=== PATIENT | female | born 1950 | race Hispanic/Latino ===

== ENCOUNTER 2017-08-19 15:44 | Inpatient (IN) | payer MEDICARE ==
--- NOTE | 2017-08-19 16:19 | ED PDOC ---
Arrival/HPI - General Chief Complaint: Shortness Of Breath Time Seen by Provider: 08/19/17 16:14 Historian: Patient - History of Present Illness Narrative History of Present Illness (Text): 08/19/17 16:16 pt p/w 3 days onset of worsening exertional sob/chest pressure, at most pressure /pain is rated at 8/10; pt with severe weakness/fatigue, general malaise feeling ; pt states ~ 10 days ago had URI like symptoms with first day of sore throat then subsequent severe nasal congestion and some body aches with improvement over the last weekend but took a turn for the worse 3 days ago; pt states intact appetite, no fever/chills/sweats, no palpitations, non-radiating chest pressure, no abd pain, no n/v, no numbness/tingling, no urinary/bowel changes, no fall/trauma/sick contact, no travel; pt denied LOC; ?dizziness/ lightheadedness; pt denied other complaints pt is here for further eval. PCP: DR DICKENS cards: n/a pt lives alone smokes ~ 1/2 pack a day Time/Duration: < week Symptom Onset: Gradual Symptom Course: Worsening Quality: Pressure, Tightness Severity Level: 8, Severe Activities at Onset: Rest, Other (worse with exertion) Context: Exertion, Home Past Medical History - Provider Review Nursing Documentation Reviewed: Yes - Travel History Have you recently traveled outside [place] w/in the past 3 mons?: No - Past History Past History: No Previous - Infectious Disease Hx of Infectious Diseases: None - Reproductive Menopause: Yes Currently : No - Pulmonary Hx Asthma: Yes - Psychiatric Hx Depression: Yes Hx Substance Use: No - Surgical History Hx Hysterectomy: Yes - Suicidal Assessment Feels Threatened In Home Enviroment: No Family/Social History - Physician Review Nursing Documentation Reviewed: Yes Family/Social History: No Known Family HX Smoking Status: Heavy Smoker > 10 Cigarettes Daily Hx Alcohol Use: No Hx Substance Use: No Hx Substance Use Treatment: No Allergies/Home Meds Allergies/Adverse Reactions: Allergies Sulfa Allergy (Uncoded 08/19/17 15:53) RASH Home Medications: Home Meds Medication Instructions Recorded Confirmed Albuterol/Ipratropium [Combivent] 1 puff IH PRN PRN 03/05/12 08/19/17 Review of Systems - Review of Systems Constitutional: Fatigue. absent: Fevers, Night Sweats Eyes: Normal ENT: Normal Respiratory: SOB, Cough, Sputum. absent: Wheezing Cardiovascular: Chest Pain, Palpitations, TERRY Gastrointestinal: Normal Genitourinary Female: Normal Musculoskeletal: Normal Skin: Normal Neurological: Dizziness Endocrine: Normal Hemo/Lymphatic: Normal Psychiatric: Normal Physical Exam Vital Signs Reviewed: Yes Vital Signs Temp Pulse Resp BP Pulse Ox 08/19/17 16:05 18 96 08/19/17 15:49 98 F 114 H 18 165/89 H 97 Temperature: Afebrile Blood Pressure: Hypertensive Pulse: Tachycardic Respiratory Rate: Normal Appearance: Positive for: Well-Appearing, Uncomfortable, Other (alert/awake, GCS = 15, oriented x 3, NAD, cooperative, uncomfortable, mild distress due to coughing) Pain Distress: Mild Mental Status: Positive for: Alert and Oriented X 3 - Systems Exam Head: Present: Atraumatic, Normocephalic Pupils: Present: PERRL, Other (no nystagmus, no photophobia, sclera anicteric, visual field intact b/l) Extroacular Muscles: Present: EOMI Conjunctiva: Present: Normal Ears: Present: Normal Mouth: Present: Dry, Other (fair dentitions, ) Pharnyx: Present: Normal Nose (External): Present: Atraumatic Nose (Internal): Present: Normal Inspection Neck: Present: Normal Range of Motion, Trachea Midline, Other (no drooling/ stridor, no nuchal rigidity, no meningeal signs, intact ROM). No: MIDLINE TENDERNESS Respiratory/Chest: Present: Other (coarse breath sounds bibasiliar, poor insp effort/poor aeration; no wheezing/rales/rhonchi, mild tachypenia, no accessory muscle use noted, no belly retractions). No: Respiratory Distress, Accessory Muscle Use Cardiovascular: Present: Normal S1, S2, Other (+ tachycardia, +S1, +S2). No: Murmurs Abdomen: Present: Normal Bowel Sounds, Other (well nourished female, no focal tenderness, no estrada's sign, no mcburney's point tenderness, no masses/rebound/ guarding/rigidity) Back: Present: Normal Inspection. No: CVA Tenderness, Midline Tenderness Upper Extremity: Present: Normal Inspection, Normal ROM, NORMAL PULSES, Neurovascularly Intact Lower Extremity: Present: Normal Inspection, Edema (+ 1/5 pitting edema b/l lower ext mid-tib/fib; no mallory's sign b/l, strength 5/5 grossly intact in all limbs), NORMAL PULSES, Neurovascularly Intact, Capillary Refill < 2 s Neurological: Present: GCS=15, CN II-XII Intact, Speech Normal, Other (no facial asymmetries, no slurr speech, oriented x 3, NIH stroke scale ~ 0) Skin: Present: Warm, Normal Color, Other (cap refill < 1sec, no ulcerations, no petechiae) Psychiatric: Present: Alert, Oriented x 3 Medical Decision Making ED Course and Treatment: 08/19/17 16:17 Impression: chest pain/exertional chest pain/sob, recent URI i have consider all the differential diagnosis regarding pt's chief medical complaints/clinical findings, including but are not limited to: r/o ACS, r/o COPD, r/o infection A/P: chest pain, sob - labs - iv - xray - ? PE - acs eval - observe - supportive care 08/19/17 17:55 repeate lung exam after 3 duonebs: CTA b/l, no w/r/r, remained slight poor aeration, no tachypenia, no accessory muscle use noted pt currently with min chest pain pt is made aware of her medical results agrees with admission Dr Baker contacted, made aware, agrees with ED mgt/txt, agrees with admission Re-evaluation Time: 17:51 Reassessment Condition: Improving,but remains with symptoms - Critical Care Critical Care Minutes: 45 minutes Critical Care Time: Excluding Proc Time Narrative Critical Care (Text): 08/19/17 17:57 critical care time: 45min, excluding procedure time, excluding time teaching residents/students/mid-level providers; including initial eval/diagnosis, diagnostic interpretation, re-eval, consultations, final disposition - Lab Interpretations Lab Results: 08/19/17 16:05 08/19/17 16:05 Lab Results 08/19/17 16:05: Influenza Typ A,B (EIA) Negative for flu a/b 08/19/17 16:05: Sodium 142, Potassium 4.6, Chloride 103, Carbon Dioxide 29, Anion Gap 15, BUN 21, Creatinine 0.7, Est GFR ( Amer) > 60, Est GFR (Non- Af Amer) > 60, Random Glucose 91, Calcium 10.5, Magnesium 2.0, Total Bilirubin 0.5, AST 33, ALT 35, Alkaline Phosphatase 88, Lactate Dehydrogenase 747 H, Total Creatine Kinase 160, Troponin I < 0.01, NT-Pro-B Natriuret Pep 65.1, Total Protein 7.8, Albumin 4.2, Globulin 3.5, Albumin/Globulin Ratio 1.2 08/19/17 16:05: PT 11.4, INR 1.00, APTT 25.0 L 08/19/17 16:05: WBC 10.2, RBC 5.02, Hgb 15.0, Hct 44.9, MCV 89.4, MCH 29.9, MCHC 33.4, RDW 13.2, Plt Count 220, MPV 10.4, Gran % 67.3, Lymph % (Auto) 23.9, [place] % (Auto) 7.1 H, Eos % (Auto) 1.3 L, Baso % (Auto) 0.4, Gran # 6.84 H, Lymph # (Auto) 2.4, [place] # (Auto) 0.7 H, Eos # (Auto) 0.1, Baso # (Auto) 0.04 I have reviewed the lab results: Yes Interpretation: All labs normal - RAD Interpretation Narrative RAD Interpretations (Text): 08/19/17 17:58 hyperinflated lung westfall, NO consolidations noted Radiology Orders: 08/19/17 16:14 CHEST TWO VIEWS (PA/LAT) [RAD] [employer] Council[employer]: ED Physician - EKG Interpretation EKG Interpretation (Text): 08/19/17 16:44 Sinus tach at 115 bpm, normal axis, no ectopy, peaked Ts noted II/III/F, V3-6, non-specific st changes, ABNL EKG; no old EKG to compare with Interpreted by ED Physician: Yes Type: 12 lead EKG Comparison: No previous EKG avail. - Medication Orders Current Medication Orders: Ceftriaxone Sodium (Rocephin 1 Gram Ivpb) 1 gm in 100 mls @ 200 mls/hr IVPB STAT STA PRN Reason: Protocol Stop: 08/19/17 18:16 Azithromycin (Zithromax 500mg In Ns) 500 mg in 250 mls @ 167 mls/hr IVPB STAT STA PRN Reason: Protocol Stop: 08/19/17 19:17 Discontinued Medications Albuterol/Ipratropium (Duoneb 3 Mg/0.5 Mg (3 Ml) Ud) 3 ml IH Q15M RAN Stop: 08/19/17 16:46 Last Admin: 08/19/17 16:58 Dose: 3 ml Aspirin (Aspirin) 325 mg PO STAT STA Stop: 08/19/17 16:15 Last Admin: 08/19/17 16:27 Dose: 325 mg Methylprednisolone (Solu-Medrol) 125 mg IVP STAT STA Stop: 08/19/17 16:16 Last Admin: 08/19/17 16:27 Dose: 125 mg IVP Administration Document 08/19/17 16:27 LM (Rec: 08/19/17 16:27 [facility] [id number]) Charges for Administration # of IVP Administrations 1 Disposition/Present on Arrival - Present on Arrival Any Indicators Present on Arrival: No History of DVT/PE: No History of Uncontrolled Diabetes: No Urinary Catheter: No History of Decub. Ulcer: No History Surgical Site Infection Following: None - Disposition Have Diagnosis and Disposition been Completed?: Yes Diagnosis: Acute bronchitis with COPD, Dehydration, Chest pain with moderate risk for cardiac etiology Disposition: HOSPITALIZED Disposition Time: 18:01 Patient Plan: Admission, Telemetry Condition: STABLE Discharge Instructions (ExitCare): Chest Pain (ED) Referrals: Shaheen Dickens MD [Primary Care Provider] - Follow up with primary Forms: [employer] (Arabic)
[2017-08-19] MEDS: Albuterol-Ipratrop 3 mg / 0.5 (3 ml) UD IH SCH ×3 (16:27→16:58)
[2017-08-19 16:39] LABS: BASO # 0.04 K/mm3 (0.0-2.0); BASO % 0.4 % (0.0-3.0); EOS # 0.1 (0.0-0.7); EOS % 1.3 % (1.5-5.0); GRAN # 6.84 (1.4-6.5); GRAN % 67.3 % (50.0-68.0); LYMPH # 2.4 (1.2-3.4); LYMPH % 23.9 % (22.0-35.0); MEAN CELL VOLUME 89.4 fl (80.0-105.0); MEAN CORPUSCULAR HEMOGLOBIN 29.9 pg (25.0-35.0); MEAN CORPUSCULAR HGB CONC 33.4 g/dl (31.0-37.0); MEAN PLATELET VOLUME 10.4 fl (7.0-11.0); MONO # 0.7 (0.1-0.6); MONO % 7.1 % (1.0-6.0); RBC 5.02 10^6/uL (3.5-6.1); RED CELL DISTRIBUTION WIDTH 13.2 % (11.5-14.5); WHITE BLOOD COUNT 10.2 10^3/ul (4.5-11.0)
[2017-08-19 16:49] LABS: ALB/GLOB RATIO 1.2 (1.1-1.8); ALBUMIN 4.2 g/dL (3.0-4.8); CALCIUM 10.5 mg/dL (8.4-10.5); GFR AFRICAN-AMERICAN > 60; GFR NON-AFRICAN AMERICAN > 60
[2017-08-19 16:51] LABS: ALT/SGPT 35 U/L (7-56); AST/SGOT 33 U/L (14-36); BLOOD UREA NITROGEN 21 mg/dL (7-21)
[2017-08-19 16:57] LABS: B-TYPE NATRIURETIC PEPTIDE 65.1 pg/mL (0-450)
[2017-08-19 16:58] LABS: PROTHROMBIN TIME 11.4 SECONDS (9.4-12.5)
--- NOTE | 2017-08-19 17:11 | CARD ---
APPROVED REPORT EKG Measurement Heart [id number] <Conclusion> Sinus tachycardia Biatrial enlargement Poor R progression V1-V3.
[2017-08-19 17:29] LABS: TROPONIN I < 0.01 ng/mL
[2017-08-19] MEDS ORDERED: cefTRIAXone 1 gm 1 GM/100 ML BAG IVPB STA (17:47)
[2017-08-19] MEDS ORDERED: Azithromycin 500MG/NS 250ml 500 MG/250 ML BAG IVPB STA (17:48)
[2017-08-19] MEDS ORDERED: Sodium Chloride 0.9% 500 ML IV STA (18:02)
[2017-08-19 19:42] LABS: URINE APPEARANCE CLEAR (CLEAR); URINE BILIRUBIN NEGATIVE (NEGATIVE); URINE BLOOD LARGE (NEGATIVE); URINE COLOR YELLOW (YELLOW); URINE GLUCOSE (UA) NEGATIVE (NEGATIVE); URINE LEUKOCYTE ESTERASE SMALL Leu/uL (NEGATIVE); URINE PROTEIN TRACE mg/dL (<30 mg/dL); URINE UROBILINOGEN 0.2 E.U./dL (<1 E.U./dL)
[2017-08-19 20:15] LABS: URINE BACTERIA FEW (NEG)
[2017-08-19 22:55] VITALS: BMI 38.9
[2017-08-20] MEDS: Albuterol-Ipratrop 3 mg / 0.5 (3 ml) UD IH SCH ×4 (00:10→20:35)
[2017-08-20] MEDS: Budesonide 0.5 mg/2 ml Inhal Susp UD IH SCH ×2 (07:44→20:35)
--- NOTE | 2017-08-20 07:54 | RAD ---
HISTORY: sob/cough/weakness, chest pain COMPARISON: No prior. TECHNIQUE: Chest PA and lateral FINDINGS: LUNGS: No active pulmonary disease. PLEURA: No significant pleural effusion identified. No pneumothorax apparent. CARDIOVASCULAR: Normal. OSSEOUS STRUCTURES: No significant abnormalities. VISUALIZED UPPER ABDOMEN: Normal. OTHER FINDINGS: None. IMPRESSION: No active disease.
[2017-08-20] MEDS ORDERED: MethylPREDNISolone 40 mg Vial IVP SCH (10:00)
[2017-08-20 10:01] LABS: HDL CHOLESTEROL 52 mg/dL (29-60)
[2017-08-20] MEDS: Fluticasone Nasal 50 mcg/Spray NS SCH (10:03)
[2017-08-20 10:11] LABS: LDL CHOLESTEROL 162 mg/dL (0-129)
[2017-08-20 10:14] LABS: TROPONIN I < 0.01 ng/mL
[2017-08-20 10:20] LABS: T4 7.5 ug/dL (5.5-11.0)
--- NOTE | 2017-08-20 11:32 | CON ---
DATE: 08/20/2017 PULMONARY CONSULTATION REFERRING PHYSICIAN: Chris Harper MD. REASON FOR CONSULTATION: Chronic obstructive pulmonary disease. HISTORY OF PRESENT ILLNESS: The patient is a 66-year-old female, with past medical history significant for chronic obstructive pulmonary disease, positive extensive smoking history - still smokes, who presents to [facility] with main complaints of increasing dyspnea on exertion and chest pressure for the past 3 days. Approximately 10 days ago, the patient started with a postnasal drip. Subsequently, the patient developed a mild cough with minimal sputum production. The patient is not short of breath at rest. As above, the patient did present with chest pressure. She denies chest pressure or any chest discomfort this morning. There is no history of coughing up of blood. There is no history of chest discomfort, made worse with deep respirations. There is no history of temperatures, chills or infectious exposure. There is no history of night sweats, weight loss or appetite change prior to the above events. No history of leg or calf pains. No history of syncope or diaphoresis. No history of recent travel or trauma. REVIEW OF SYSTEMS: No history of nausea, vomiting or diarrhea. No acute urinary symptoms. The patient did state to some body aches at home. No new neurologic complaints. Rest of the review of systems is negative. ALLERGIES: SULFA. SOCIAL HISTORY: Positive for extensive tobacco usage - still smokes. No alcohol. FAMILY HISTORY: No inheritable diseases. HOME MEDICATIONS: Include Combivent. PHYSICAL EXAMINATION: GENERAL: The patient appears comfortable this morning. She is not short of breath at rest. She has no chest discomfort. VITAL SIGNS: Temperature is 98.1, pulse 101, respirations 18/20, blood pressure 123/73. Oxygen saturation on nasal cannula is 97%. HEENT: Normocephalic, atraumatic. No JVD. CARDIOVASCULAR: Positive S1, S2. No S3 gallop. LUNGS: Decreased breath sounds at the bases. Mild bilateral rhonchi. No wheezing. EXTREMITIES: Mild edema. No cyanosis. No clubbing. Calves are nontender to palpation. GI: Abdomen is soft, nontender and nondistended. Bowel sounds are positive. SKIN: No acute rash. NEUROLOGIC: Limited at the present time. PERTINENT LABORATORY DATA: Chest x-ray was done and reviewed. There are minimal chronic-appearing changes noted at the bases. There are no acute infiltrates. Official results are pending. CBC: White count 10.2, hemoglobin 15.0, hematocrit 44.9, platelets of 220,000. Complete metabolic profile: LDH 747. Rest of the metabolic profile is within normal limits. IMPRESSION: 1. Mild acute bronchitis. 2. Chronic obstructive pulmonary disease. 3. Acute rhinitis. 4. Chest pressure - resolving. PLAN: The patient presents to [facility] with a 3-day history of worsening dyspnea on exertion and chest pressure. As above, she started to experience a runny nose and upper respiratory tract symptoms approximately 10 days ago. Soon after, she did develop a mild cough with minimal sputum production. There are no temperatures by history. The patient offers no other pulmonary symptoms. I did review the chest x-ray as above. I do not appreciate any new or significant changes. On physical exam, there is only mild bronchospasm noted. In addition, there is no significant alveolar-arterial gradient. I will continue with the current nebulizer treatments and low-dose intravenous steroids for now. However, I will also add inhaled steroids and nasal steroids (given the above history) this morning. As above, the patient denies any chest symptoms this morning. She does state to feeling much better overall. Additional pulmonary intervention will be based on the clinical status of the patient. I will also discuss the above with Dr. Harper this morning. Thank you very much for this pulmonary consultation. Da Little MD MILLI
--- NOTE | 2017-08-20 17:47 | CARD ---
APPROVED REPORT EXAM: Two-dimensional and M-mode echocardiogram with Doppler and color Doppler. INDICATION Dyspnea 2D DIMENSIONS Left Atrium (2D)3.9 (1.6-4.0cm)IVSd1.5 (0.7-1.1cm) LVDd2.9 (3.9-5.9cm)PWd1.2 (0.7-1.1cm) LVDs2.0 (2.5-4.0cm)FS (%) 31.8 % LVEF (%)61.8 (>50%) M-Mode DIMENSIONS Aortic Root2.00 (2.2-3.7cm)Aortic Cusp Exc.1.30 (1.5-2.0cm) Aortic Valve AoV Peak Vbdvmadj378.0cm/Shiela Peak GR.33mmHg Mitral Valve MV E Muaytfkw74.4cm/sMV A Xhcxsvlx218.0cm/sE/A ratio0.7 TDI E/Lateral E'0.0E/Medial E'0.0 Tricuspid Valve TR Peak Gvbtnmof697ug/sRAP CQSPVNBP16icFwSE Peak Gr.30mmHg [id number] LEFT VENTRICLE The left ventricle is normal size. There is mild concentric left ventricular hypertrophy. The left ventricular function is normal.EF-60-65% There is normal LV segmental wall motion. Transmitral Doppler flow pattern is Grade III-reversible restrictive diastolic dysfunction. No left ventricle thrombus noted on this study. There is no ventricular septal defect visualized. There is no left ventricular aneurysm. There is no mass noted in the left ventricle. RIGHT VENTRICLE The right ventricle is normal size. There is normal right ventricular wall thickness. The right ventricular systolic function is normal. ATRIA The left atrium is borderline dilated. The right atrium size is normal. The interatrial septum is intact with no evidence for an atrial septal defect. AORTIC VALVE The aortic valve is not well visualized. There is trace aortic regurgitation. There is mild valvular aortic stenosis. Vs aortic sclerosis. MITRAL VALVE The mitral valve is thickened but opens well. Mitral regurgitation is mild. There is no mitral valve stenosis. There is no evidence of mitral valve prolapse. TRICUSPID VALVE The tricuspid valve leaflets are thickened , but open well. There is mild tricuspid regurgitation.RVSP-33 mmof hg. There is no tricuspid valve stenosis. There is no tricuspid valve prolapse or vegetation. GREAT VESSELS The aortic root is normal in size. The ascending aorta is normal in size. The pulmonary artery is normal. The IVC was not visualized. PERICARDIAL EFFUSION There is no pleural effusion. There is no pericardial effusion. <Conclusion> TDS Poor Sonic Window Normal chamber Size. EF-60-65% The aortic valve is not well visualized. Mitral regurgitation is mild. There is mild tricuspid regurgitation.RVSP-33 mmof hg.
[2017-08-20 18:38] VITALS: RESP 20
--- NOTE | 2017-08-21 00:23 | HP ---
DATE OF EXAM: 08/20/2017 ADMISSION NOTE HISTORY OF PRESENT ILLNESS: Ms. Altman is a 66-year-old female admitted to the hospital with worsening dyspnea for past few days. She had URI like symptoms for past one week. [place] weak. She was also found to have tachycardia in the ED. No chest pain. She has not seen her PMD for a few years now. Shortness of breath has improved on bronchodilators. Chest x-ray did not show any infiltrate. PAST MEDICAL HISTORY: Asthma, depression. PAST SURGICAL HISTORY: Hysterectomy. PERSONAL HISTORY: Heavy smoker, more than 10 cigarettes a day. SOCIAL HISTORY: Lives at home. FAMILY HISTORY: Noncontributory. ALLERGIES: SULFA. HOME MEDICATIONS: Albuterol p.r.n. REVIEW OF SYSTEMS: As per HPI. Rest of 12-point review of systems negative. PHYSICAL EXAMINATION: GENERAL: In no respiratory distress. Comfortable in bed. VITAL SIGNS: Temperature 98, heart rate 110 per minute, respiratory 18 per minute, blood pressure 165/80, oxygen saturation 98% on oxygen by nasal cannula. HEENT: No pallor. NECK: No lymphadenopathy. CHEST: Air entry present, equal bilaterally. No added sounds. No rhonchi. No crepitations. CARDIOVASCULAR: Tachycardia plus. S1 and S2 normal. No murmur. No gallop. ABDOMEN: Soft, nontender. No hepatosplenomegaly. EXTREMITIES: No edema. CENTRAL NERVOUS SYSTEM: Alert and oriented x3. No focal sensory or motor deficit. DIAGNOSTIC DATA: Chest x-ray did not show any infiltrate. LABORATORY DATA: White count 10.2, hemoglobin 15, hematocrit 44.9, platelet 220. Sodium 142, potassium 4.6, BUN 21, creatinine 0.7, glucose 91. Monocyte 7%, eosinophil 1.3%. EKG sinus tachycardia at 115 beats per minute, nonspecific ST-T changes. ASSESSMENT: 1. Chronic obstructive pulmonary disease exacerbation. 2. Supraventricular tachycardia. 3. Monocytosis. 4. Hypercholesterolemia. PLAN: She will be admitted to the hospital. Tele monitoring. Serial troponins will be monitored, two sets of troponins negative. Echocardiogram ordered. Reports reviewed. Echo showed normal ejection fraction with mild tricuspid regurgitation, poor window. Pulmonary consultation, Dr. Little requested, consultation appreciated, note reviewed. Cardiology consultation, Dr. Dawkins requested. Shortness of breath has resolved now. We will await Cardiology input before prior to discharge. Bronchodilators, DuoNeb t.i.d. and p.r.n., prednisone 40 mg IV daily. Discussed with the patient at length. Dulce Scott MD
[2017-08-21 05:39] VITALS: BP 133/81; TEMP 97.5; O2SAT 99
--- NOTE | 2017-08-21 08:06 | PN ---
DATE: PULMONARY NOTE SUBJECTIVE: The patient appears very comfortable this morning. She is not short of breath at rest. OBJECTIVE VITAL SIGNS: Temperature is 97.5, pulse 88, respirations 18/20, blood pressure 133/81. Oxygen saturation on room air is 99%. HEENT: Normocephalic, atraumatic. NECK: No JVD. CARDIOVASCULAR: Positive S1, S2. No S3 gallop. LUNGS: Improved breath sounds at the bases. Much less rhonchi. No wheezing. EXTREMITIES: Mild edema. No cyanosis, no clubbing. Calves are nontender to palpation. GASTROINTESTINAL: Abdomen is soft, nontender and nondistended. Bowel sounds are positive. SKIN: No acute rash. NEUROLOGIC: Exam limited at the present time. IMPRESSION 1. Mild acute bronchitis. 2. Chronic obstructive pulmonary disease. 3. Acute rhinitis. 4. Chest pressure - resolved. PLAN: The patient appears very comfortable this morning. She is not short of breath at rest. She has no chest discomfort. Her cough is much less. She does state to feeling much, much better overall. I discussed the case with the night nurse at length. The night nurse stated that the patient had a very good night. On physical exam, there is significantly less bronchospasm. In addition, the oxygen saturation on room air is now 99%. I will continue with the current nebulizer treatments, inhaled steroids, and nasal steroids for now. However, I will change to oral prednisone this morning. The patient has improved significantly. She is asking to go home. She does have my number/information for a followup appointment as an outpatient. She says she will come. I will discuss the above with the attending physician. Da Little MD MILLI
[2017-08-21] MEDS: Albuterol-Ipratrop 3 mg / 0.5 (3 ml) UD IH SCH (08:26)
[2017-08-21] MEDS: Budesonide 0.5 mg/2 ml Inhal Susp UD IH SCH (08:26)
[2017-08-21] MEDS: Fluticasone Nasal 50 mcg/Spray NS SCH (09:27)
[2017-08-21 10:40] VITALS: PULSE 90
--- NOTE | 2017-08-21 21:41 | CON ---
DATE: 08/21/2017 REQUESTING PHYSICIAN: Dulce Scott MD. REASON FOR CONSULTATION: Chest pain. HISTORY OF PRESENT ILLNESS: This is a 66-year-old woman with history of COPD and longstanding tobacco abuse, who presented complaining of worsening dyspnea as well as associated chest discomfort. She has had a cough with minimal sputum production. Over the past 24 hours, her dyspnea became worse and had associated chest discomfort. Initial electrocardiogram showed no acute changes and cardiac enzymes were negative. She is seen sitting in a chair, on telemetry. She feels significantly better since admission. She has no chest pain at the present time. PAST HISTORY: Notable for the problems mentioned above. She has undergone prior hysterectomy and has a history of depression in the past. CURRENT MEDICATIONS: Include DuoNeb inhaler, Flonase, Pulmicort and Solu-Medrol. ALLERGIES: SHE HAS HAD REACTION TO SULFAS IN THE PAST. SOCIAL HISTORY: She smokes less than a pack per day. She denies alcohol use. She is a retired nurse. She is . FAMILY HISTORY: Both parents are from age-related illness. REVIEW OF SYSTEM: A 10-point review of systems is otherwise unremarkable. PHYSICAL EXAMINATION: GENERAL: She is a middle-aged woman, who appears comfortable at rest. VITAL SIGNS: Her blood pressure is 130/80 with a pulse of 88, sinus, respirations are 16. She is afebrile. HEENT: Head: Normocephalic, atraumatic. NECK: Supple. No JVD noted. CHEST: Bilateral scattered rhonchi and occasional wheeze noted. ABDOMEN: Soft, obese, nontender, normoactive bowel sounds. EXTREMITIES: No clubbing, cyanosis or edema. SKIN: Warm and dry. PSYCHIATRIC: Normal mood and affect. NEUROLOGIC: Alert and oriented x3. No gross motor or sensory deficits appreciable. DIAGNOSTIC DATA: White count is 10.2, hemoglobin and hematocrit 15 and 44.9 with a platelet count of 220,000. PT/PTT normal. Potassium 4.6, BUN and creatinine 21 and 0.7. Two sets of cardiac enzymes are negative. Cholesterol 239 with triglycerides of 96, LDL is 162 with an HDL of 52. TSH 0.16. Electrocardiogram reveals sinus rhythm with nonspecific ST-T abnormalities. Chest x-ray reveals normal cardiac silhouette with clear lung westfall. Echocardiogram was performed showing normal chamber size. LV systolic function appears normal. The study is technically limited, mild mitral regurgitation and mild tricuspid regurgitation are noted. IMPRESSION: 1. Chest pain, unclear if this is secondary to acute respiratory distress or cardiac ischemia, no clear evidence of acute cardiac injury at present. 2. Significant cardiac risk factors given hyperlipidemia and longstanding tobacco abuse. 3. Chronic obstructive pulmonary disease exacerbation. 4. Rest of problems as noted. RECOMMENDATIONS: From a cardiac standpoint, she appears stable for discharge home at this time. An outpatient stress test will be recommended after stabilization of her pulmonary status. We will be happy to arrange for outpatient followup. Obviously, smoking abstinence was strongly encouraged. Lavelle Desir MD
--- NOTE | 2017-08-22 01:16 | DS ---
DISCHARGE DIAGNOSES: 1. Chronic obstructive pulmonary disease exacerbation. 2. Supraventricular tachycardia. 3. Hypercholesterolemia. 4. Longstanding history of smoking. HOSPITAL COURSE: The patient was admitted with COPD exacerbation, treated with bronchodilators and IV steroid. Shortness of breath improved. She had major risk factor for coronary artery disease including longstanding smoking, history of COPD, hypercholesterolemia. Cardiology consultation of Dr. Dawkins requested. She was also evaluated by Pulmonary, Dr. Little. She has been discharged in stable condition. An echocardiogram done during hospitalization showed normal ejection fraction. PHYSICAL EXAMINATION ON DISCHARGE: GENERAL: Comfortable in bed, in no acute distress. VITAL SIGNS: Temperature 98.7, heart rate 80 per minute, blood pressure 120/70, oxygen saturation 98% on room air. HEENT: Normal. NECK: No lymphadenopathy. CHEST: Air entry present and equal bilateral. No added sounds. CARDIOVASCULAR: S1, S2 normal. No murmur. No gallop. ABDOMEN: Soft, nontender. No hepatosplenomegaly. CONDITION ON DISCHARGE: Stable. DISPOSITION: Discharged home. HOME MEDICATIONS: Steroid taper, Pulmicort and Advair inhalation. All prescriptions given to the patient. FOLLOWUP: Follow up with Dr. Little in 1 week. Follow up with Dr. Dawkins. Follow up with Dr. Harper. Discharge instructions given to the patient. Time spent in preparing discharge and coordinating care 50 minutes. Dulce Scott MD
== END 2017-08-21 11:47 | disposition home or self-care (01) | DRG 191 ==
LOC: ED 15:44 → ERH 17:49 → 3RSO 22:36
PROVIDERS: ADMIT Internal Medicine Nephrology; ATTEND Internal Medicine Nephrology
DX: J44.1 Chronic obstructive pulmonary disease with (acute) exacerbation (principal); I47.1 Supraventricular tachycardia; J00 Acute nasopharyngitis [common cold]; J20.9 Acute bronchitis, unspecified; J44.0 Chronic obstructive pulmonary disease with (acute) lower respiratory infection; E78.5 Hyperlipidemia, unspecified; E78.00 Pure hypercholesterolemia, unspecified; D72.821 Monocytosis (symptomatic); F17.210 Nicotine dependence, cigarettes, uncomplicated; Z90.710 Acquired absence of both cervix and uterus